=== PATIENT | male | born 1980 | race Two or more races ===

== ENCOUNTER → 2023-02-22 | Outpatient (REF) | LOC: M LAB 08:13 | PROVIDERS: ATTEND Nurse Practitioner Adult Health | DX: Z02.89 Encounter for other administrative examinations (principal) ==

== ENCOUNTER 2023-06-09 18:24 | Emergency (ER) | payer SELFPAY ==
[~2023-06-09] VITALS: Ht 182.9 cm; Wt 113.6 kg
[2023-06-09 22:14] VITALS: BP 147/86; TEMP 97.6; O2SAT 99
== END 2023-06-09 22:18 | disposition home or self-care (01) ==
LOC: M ED 18:24
DX: S86.002A Unspecified injury of left Achilles tendon, initial encounter (principal); X58.XXXA Exposure to other specified factors, initial encounter; Y92.39 Other specified sports and athletic area as the place of occurrence of the external cause; Y93.89 Activity, other specified

== ENCOUNTER → 2023-06-25 | Outpatient (CLI) | payer BC | LOC: M RAD 16:57 | PROVIDERS: ATTEND Orthopaedic Surgery | DX: S86.012A Strain of left Achilles tendon, initial encounter (principal); Y93.67 Activity, basketball; Y92.9 Unspecified place or not applicable; Y99.8 Other external cause status ==

== ENCOUNTER 2023-07-21 11:30 | Outpatient (RCR) | payer BC | END 2023-07-22 | LOC: M PT 11:30 | PROVIDERS: ATTEND Orthopaedic Surgery | DX: S86.012A Strain of left Achilles tendon, initial encounter (principal) ==

== ENCOUNTER 2023-08-20 07:00 | Outpatient (RCR) | payer BC | END 2023-08-22 | LOC: M PT 07:00 | PROVIDERS: ATTEND Orthopaedic Surgery | DX: S86.012A Strain of left Achilles tendon, initial encounter (principal) ==

== ENCOUNTER 2023-09-08 07:00 | Outpatient (RCR) | payer BC | END 2023-09-22 | LOC: M PT 07:00 | PROVIDERS: ATTEND Orthopaedic Surgery | DX: S86.012D Strain of left Achilles tendon, subsequent encounter (principal) ==

== ENCOUNTER → 2023-10-28 | Outpatient (REF) ==
[2023-10-28 14:31] LABS: RSV AMPLIFICATION NEGATIVE (NEGATIVE)
== END ==
LOC: M EMP 13:07
PROVIDERS: ATTEND Family Medicine
DX: Z01.89 Encounter for other specified special examinations (principal)

== ENCOUNTER → 2023-12-09 | Outpatient (REF) ==
[2023-12-09 11:37] LABS: RSV AMPLIFICATION NEGATIVE (NEGATIVE)
== END ==
LOC: M EMP 09:08
PROVIDERS: ATTEND Family Medicine
DX: Z20.828 Contact with and (suspected) exposure to other viral communicable diseases (principal)

== ENCOUNTER → 2023-12-09 | Outpatient (REF) | LOC: M EMP 09:10 | PROVIDERS: ATTEND Family Medicine | DX: Z20.89 Contact with and (suspected) exposure to other communicable diseases (principal) ==

== ENCOUNTER → 2024-04-21 | Outpatient (REF) | LOC: M EMP 08:17 | PROVIDERS: ATTEND Family Medicine | DX: Z11.52 Encounter for screening for COVID-19 (principal) ==

== ENCOUNTER → 2024-04-21 | Outpatient (REF) | payer BC | LOC: M SFHCADAM 12:31 | PROVIDERS: ATTEND Family Medicine | DX: J98.9 Respiratory disorder, unspecified (principal) ==

== ENCOUNTER → 2024-07-25 | Outpatient (REF) | LOC: M EMP 08:46 | PROVIDERS: ATTEND Family Medicine | DX: Z11.52 Encounter for screening for COVID-19 (principal) ==

== ENCOUNTER → 2024-07-25 | Outpatient (REF) | LOC: M EMP 08:44 | PROVIDERS: ATTEND Family Medicine | DX: Z11.52 Encounter for screening for COVID-19 (principal) ==

== ENCOUNTER → 2025-01-01 | Outpatient (REF) ==
[2025-01-01 09:30] LABS: SOFIA COVID ANTIGEN NEGATIVE (NEGATIVE)
== END ==
LOC: M EMP 08:58
PROVIDERS: ATTEND Family Medicine
DX: Z11.52 Encounter for screening for COVID-19 (principal)

== ENCOUNTER → 2025-01-03 | Outpatient (CLI) | payer BC ==
[2025-01-03 15:51] LABS: BASO % 0.3 % (0.0-1.0); EOS % 0.8 % (0.0-3.0); HEMATOCRIT 43.4 % (42.0-52.0); HEMOGLOBIN 13.3 g/dl (13.5-17.5); LYMPH # 1.6 10^3/uL (1.5-5.0); LYMPH % 43.2 % (24.0-44.0); MEAN CORPUSCULAR HEMOGLOBIN 25.4 pg (27.0-33.0); MEAN CORPUSCULAR HGB CONC 30.6 g/dl (32.0-36.5); MEAN CORPUSCULAR VOLUME 82.8 fl (80.0-96.0); MONO # 0.9 10^3/uL (0.0-0.8); MONO % 23.6 % (2.0-8.0); NEUTROPHILS # 1.2 10^3/uL (1.5-8.5); NEUTROPHILS % 31.8 % (36.0-66.0); PLATELET COUNT, AUTOMATED 199 10^3/uL (150-450); RED BLOOD COUNT 5.24 10^6/uL (4.30-6.10); WHITE BLOOD COUNT 3.7 10^3/uL (4.0-10.0)
== END ==
LOC: M PLALAB 12:14
PROVIDERS: ATTEND Family Medicine
DX: J18.9 Pneumonia, unspecified organism (principal)

== ENCOUNTER → 2025-01-03 | Outpatient (REF) | payer BC | LOC: M SFHCPLAZ 11:51 | PROVIDERS: ATTEND Family Medicine | DX: Z53.9 Procedure and treatment not carried out, unspecified reason (principal) ==

== ENCOUNTER → 2025-01-03 | Outpatient (CLI) | payer BC ==
[2025-01-03 15:51] LABS: BASO % 0.3 % (0.0-1.0); EOS % 0.8 % (0.0-3.0); HEMATOCRIT 43.2 % (42.0-52.0); HEMOGLOBIN 13.2 g/dl (13.5-17.5); LYMPH # 1.7 10^3/uL (1.5-5.0); LYMPH % 45.3 % (24.0-44.0); MEAN CORPUSCULAR HEMOGLOBIN 25.5 pg (27.0-33.0); MEAN CORPUSCULAR HGB CONC 30.6 g/dl (32.0-36.5); MEAN CORPUSCULAR VOLUME 83.6 fl (80.0-96.0); MONO # 0.9 10^3/uL (0.0-0.8); MONO % 22.7 % (2.0-8.0); NEUTROPHILS # 1.2 10^3/uL (1.5-8.5); NEUTROPHILS % 30.6 % (36.0-66.0); PLATELET COUNT, AUTOMATED 188 10^3/uL (150-450); RED BLOOD COUNT 5.17 10^6/uL (4.30-6.10); WHITE BLOOD COUNT 3.8 10^3/uL (4.0-10.0)
[2025-01-03 16:16] LABS: ALBUMIN 3.7 G/DL (3.2-5.2); BILIRUBIN,TOTAL 0.4 MG/DL (0.3-1.2); CALCIUM LEVEL 8.2 MG/DL (8.5-10.1); CHOLESTEROL RISK RATIO 4.72 (<5); CREATININE FOR GFR 1.64 MG/DL (0.70-1.30); CREATININE, URINE 204.1 MG/DL; GLOMERULAR FILTRATION RATE 52.9 (>60); HDL CHOLESTEROL 34.1 MG/DL (>40); LDL CHOLESTEROL 104.1 MG/DL (<100); MAU/CREAT RATIO 5.8 MCG/MG (0.0-30.0); NON-HDL-C 126.9 MG/DL; POTASSIUM SERUM 4.7 MMOL/L (3.5-5.1); TOTAL PROTEIN 6.9 G/DL (5.7-8.2)
[2025-01-03 16:17] LABS: THYROID STIMULATING HORMONE 1.939 uIU/ML (0.55-4.78); TOTAL 25(OH) VITAMIN D 44.9 NG/ML (20.0-100.0)
== END ==
LOC: M PLALAB 12:16
PROVIDERS: ATTEND Student in an Organized Health Care Education/Training Program
DX: I10 Essential (primary) hypertension (principal)